=== PATIENT | male | born 1985 | race African-American/Black ===

== ENCOUNTER 2018-08-16 14:19 | Emergency (ER) | payer OTHER ==
[~2018-08-16] VITALS: Ht 177.8 cm; Wt 90.9 kg
[2018-08-16 14:24] VITALS: BP 156/89; PULSE 82; TEMP 98
== END 2018-08-16 15:23 | disposition home or self-care (01) ==
LOC: COL.ER 14:19
DX: S61.213A Laceration without foreign body of left middle finger without damage to nail, initial encounter (principal); S61.012A Laceration without foreign body of left thumb without damage to nail, initial encounter; W26.0XXA Contact with knife, initial encounter; Y92.009 Unspecified place in unspecified non-institutional (private) residence as the place of occurrence of the external cause

== ENCOUNTER 2018-08-26 08:27 | Emergency (ER) | payer OTHER ==
[2018-08-26 08:29] VITALS: BP 141/90; PULSE 84; TEMP 97.6
== END 2018-08-26 08:33 | disposition home or self-care (01) ==
LOC: COL.ER 08:27
DX: S61.213D Laceration without foreign body of left middle finger without damage to nail, subsequent encounter (principal); X58.XXXD Exposure to other specified factors, subsequent encounter